=== PATIENT | female | born 1980 | race Caucasian/White ===

== ENCOUNTER 2016-12-19 06:09 | Emergency (ER) | payer OTHER ==
[~2016-12-19] VITALS: Ht 157.5 cm; Wt 81.5 kg
[2016-12-19 06:27] VITALS: BP 145/94
[2016-12-19] MEDS ORDERED: LIDOCAINE HCL/PF 1% 2 ML VIAL IM ONE (06:45)
[2016-12-19] MEDS ORDERED: DEXAMETHASONE SOD PHOS 4 MG/ML 5 ML VIAL IM ONE (06:45)
[2016-12-19] MEDS ORDERED: CefTRIAXone SODIUM 1 GM/VIAL IM ONE (06:45)
== END 2016-12-19 06:55 | disposition home or self-care (01) ==
LOC: EMS 06:10
DX: J02.9 Acute pharyngitis, unspecified (principal)
CPT/HCPCS: 96372; 99284; J0696; J1100; J3490

== ENCOUNTER 2016-12-28 08:52 | Emergency (ER) | payer OTHER ==
[~2016-12-28] VITALS: Ht 157.5 cm; Wt 81.5 kg
[2016-12-28] MEDS ORDERED: PENI500T2 PO (09:00)
[2016-12-28] MEDS ORDERED: IBUPROFEN 600 MG TABLET PO ONE (09:15)
[2016-12-28] MEDS ORDERED: DEXAMETHASONE SOD PHOS 4 MG/ML 5 ML VIAL IM ONE (09:15)
[2016-12-28 09:24] VITALS: BP 137/86
== END 2016-12-28 09:45 | disposition home or self-care (01) ==
LOC: EMS 08:53
DX: J02.8 Acute pharyngitis due to other specified organisms (principal); B97.89 Other viral agents as the cause of diseases classified elsewhere
CPT/HCPCS: 96372; 99283; J1100

== ENCOUNTER 2017-12-17 18:22 | Emergency (ER) | payer OTHER ==
[~2017-12-17] VITALS: Ht 157.5 cm; Wt 81.8 kg
[~2017-12-17 18:22] MED LIST: PENI500T2 PO
[2017-12-17] MEDS ORDERED: ONDANSETRON HCL 4 MG/2 ML VIAL IVP ONE (19:30)
[2017-12-17] MEDS ORDERED: KETOROLAC TROMETHAMINE 30 MG/ML VIAL IVP ONE (19:30)
[2017-12-17] MEDS ORDERED: SODIUM CHLORIDE 0.9% 1,000 ML IV ONE (19:30)
[2017-12-17] MEDS ORDERED: DiphenhydrAMINE HCL 50 MG/ML VIAL IVP ONE (19:30)
[2017-12-17 20:48] VITALS: BP 136/73
== END 2017-12-17 21:15 | disposition home or self-care (01) ==
LOC: EMS 18:23
DX: R51 Headache (principal); R11.2 Nausea with vomiting, unspecified
CPT/HCPCS: 81025; 96361; 96374; 96375; 99284; J1200; J1885; J2405; J7030

== ENCOUNTER 2021-03-10 10:02 | Emergency (ER) | payer OTHER ==
[~2021-03-10] VITALS: Ht 157.5 cm; Wt 81.8 kg
[2021-03-10 11:28] LABS: BASOPHILS % (AUTO) 0.6 % (0.0-2.0); EOSINOPHILS % (AUTO) 1.7 % (1.0-6.0); HEMATOCRIT 37.4 % (36-46); HEMOGLOBIN 12.4 g/dL (12.0-16.0); LYMPHOCYTES # (AUTO) 2.6 K/uL (1.0-4.8); LYMPHOCYTES % (AUTO) 32.7 % (22.0-44.0); MEAN CORPUSCULAR HEMOGLOBIN 29.7 pg (26.0-34.0); MEAN CORPUSCULAR HGB CONC 33.1 G/dL (31.0-37.0); MEAN CORPUSCULAR VOLUME 90 fL (80-100); MONOCYTES # (AUTO) 0.6 K/uL (0.1-1.0); MONOCYTES % (AUTO) 6.8 % (2.0-9.0); NEUTROPHILS # (AUTO) 4.7 K/uL (1.8-7.7); NEUTROPHILS % (AUTO) 58.2 % (40.0-70.0); PLATELET COUNT (AUTO) 180 K/uL (150-450); RED BLOOD CELL COUNT(AUTO) 4.17 MIL/uL (4.00-5.20); RED CELL DISTRIBUTION WIDTH 14.7 % (11.5-14.5)
[2021-03-10 11:40] LABS: ANION GAP 7 mmol/L (8-16); CALCIUM, TOTAL 8.9 mg/dL (8.8-10.5); CARBON DIOXIDE 27 mmol/L (22-29); CHLORIDE 105 mmol/L (98-107); CREATININE 0.75 mg/dL (0.60-1.30); GLOMERULAR FILTR. RATE CALC > 60 mL/min (>60); GLUCOSE,RANDOM 111 mg/dL (70-110); POTASSIUM 4.2 mmol/L (3.5-5.1); SODIUM SERUM 139 mmol/L (136-145); UREA NITROGEN, BLOOD 13 mg/dL (7-18)
[2021-03-10 11:53] LABS: ALANINE AMINOTRANSFERASE 31 U/L (12-78); ALBUMIN 3.7 g/dL (3.4-5.0); ALKALINE PHOSPHATASE 88 U/L (46-116); ASPARTATE AMINOTRANSFERASE 17 U/L (15-37); BILIRUBIN,TOTAL 0.3 mg/dL (0.1-1.0); HCG,QUANTITATIVE 24 mIU/mL (0-6); TOTAL PROTEIN, SERUM 8.1 g/dL (6.4-8.2)
[2021-03-10] MEDS ORDERED: IBUPROFEN 400 MG TABLET PO ONE (12:15)
[2021-03-10 15:06] VITALS: BP 122/73
== END 2021-03-10 15:10 | disposition home or self-care (01) ==
LOC: EMS 10:07
DX: O03.4 Incomplete spontaneous abortion without complication (principal)
CPT/HCPCS: 76856; 80053; 84702; 85025; 99284